=== PATIENT | female | born 1970 | race African-American/Black ===

== ENCOUNTER 2020-07-04 12:07 | Emergency (ER) | payer OTHER, MEDICAID ==
[2020-07-04] MEDS ORDERED: Sodium Chloride 0.9% 10 ML Syringe FLUSH PRN (12:26)
[2020-07-04 12:51] LABS: CHLORIDE,CL 103 mmol/L (98-107); SODIUM,NA 137 mmol/L (136-145)
[2020-07-04] MEDS ORDERED: Ketorolac 30 MG/ML SDV IVPUSH ONE (13:12)
--- NOTE | 2020-07-04 13:18 | EDM.PDOC ---
ED HPI GENERAL MEDICAL PROBLEM - General Chief Complaint: General Stated Complaint: left groin to back pain Time Seen by Provider: 07/04/20 12:35 Source of Information: Reports: Patient History Limitations: Reports: No Limitations - History of Present Illness INITIAL COMMENTS - FREE TEXT/NARRATIVE: Patient comes to ER with complaint of left sided pain in anterior thigh/low back . Started Monday, 3 days ago, gradually worsening. Notes mild swelling left anterior upper thigh area. 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 Was not placed on antibiotics per self report. She had been having left lower abdominal discomfort prior to the surgery and it was thought that she might have ovarian cysts involved. No cysts found per patient but ovaries/fallopian tubes were "up in intestines". Noted swelling in same upper anterior/lateral thigh area early May but did not have pain like today. Says that she was seen in [place] [facility] for this and nothing of note was found/told to follow up with primary provider. It was mentioned that they might order an MRI but this was not done due to patient moving to [place]. Hard to ambulate. Pain radiates up to left lower back when standing. Denies any specific new injuries. No fevers/chills/symptoms of infection. Eating/drinking well. No issues with urination/bowel movements. No swelling of lower legs noted. No neuro changes/weakness/numbness. HEENT/Resp/CV/chest ROS negative. Did not complain of abdominal pain. left groin/hip that wraps around to back Pain Score (Numeric/FACES): 10 - Related Data Allergies Allergy/AdvReac Type Severity Reaction Status Date / Time aspirin Allergy Chest Pain Verified 07/04/20 12:09 Home Meds: Home Meds Ibuprofen 800 mg PO TID 07/04/20 [History] Past Medical History [employer] History: Reports: Other (See Below) (Hx of removal of "infected" left ovary Apr 2020) Social & Family History - Tobacco Use Tobacco Use Status *Q: Never Tobacco User Second Hand Smoke Exposure: No - Caffeine Use Caffeine Use: Reports: None - Alcohol Use Alcohol Use History: Yes Alcohol Use Frequency: Rarely - Recreational Drug Use Recreational Drug Use: No ED ROS GENERAL - Review of Systems Review Of Systems: Comprehensive ROS is negative, except as noted in HPI. ED EXAM, GENERAL - Physical Exam Exam: See Below Exam Limited By: No Limitations General Appearance: Alert, WD/WN, No Apparent Distress Eye Exam: Bilateral Eye: EOMI, PERRL Ears: Hearing Grossly Normal Nose: No: Nasal Deformity, Nasal Swelling, Nasal Drainage Throat/Mouth: Normal Lips, Normal Voice, No Airway Compromise Head: Atraumatic, Normocephalic Neck: Supple Respiratory/Chest: No Respiratory Distress, Lungs Clear, Normal Breath Sounds, No Accessory Muscle Use, Chest Non-Tender Cardiovascular: Regular Rate, Rhythm, No Murmur GI/Abdominal: Normal Bowel Sounds, Soft, No Distention, Other (mild discomfort left lower quadrant with deep palpation) (Female) Exam: Deferred Rectal (Female) Exam: Deferred Back Exam: Other (left sided tenderness with palpation/percussion lower 1/2 back). No: Vertebral Tenderness Extremities: Normal Range of Motion, No Pedal Edema, Normal Capillary Refill, Other (Faint appearance of mild swelling left upper anterior/lateral thigh. No specific tenderness elicited with palpation. Unable to exacerbate pain complaint with palpation of groin area. Pain in left low back elicited with straight leg raise once leg past 50 degrees. No appearance of edema involving lower left leg. No redness or increased warmth noted in affected area. ). No: Increased Warmth Neurological: Alert, Oriented, Abnormal Gait (favors left leg with ambulation), Other (equal strength bilaterally) Psychiatric: Normal Affect, Normal Mood Skin Exam: Warm, Dry, Intact, Normal Color Course - Vital Signs Last Recorded V/S: Last Vital Signs Temp 35.9 C L 07/04/20 12:12 Pulse 61 07/04/20 12:12 Resp 16 07/04/20 12:12 BP 140/80 07/04/20 12:12 Pulse Ox 100 07/04/20 12:12 - Orders/Labs/Meds Orders: Active Orders 24 hr Category Date Time Status Abdomen Pelvis w Cont [CT] Stat Exams 07/04/20 13:09 Taken UA W/MICROSCOPIC [URIN] Stat Lab 07/04/20 12:25 Ordered Sodium Chloride 0.9% [Saline Flush] Med 07/04/20 12:26 Active 10 ml FLUSH ASDIRECTED PRN Saline Lock Insert [OM.PC] Routine Oth 07/04/20 12:26 Ordered Medication Orders Sodium Chloride (Saline Flush) 10 ml FLUSH ASDIRECTED PRN PRN Reason: Keep Vein Open Last Admin: 07/04/20 13:18 Dose: 10 ml Documented by: FABIO Labs: Laboratory Tests 07/04/20 07/04/20 07/04/20 Range/Units 12:30 12:30 12:30 WBC 6.1 (4.0-10.2) K/uL RBC 4.85 (3.77-5.09) M/uL Hgb 12.8 (11.7-15.5) g/dL Hct 39.2 (34.0-46.0) % MCV 80.8 L (84.0-98.0) fL MCH 26.4 L (28.2-33.3) pg MCHC 32.7 (31.7-36.0) g/dL RDW 13.6 (11.2-14.1) % Plt Count 209 (150-350) K/uL Neut % (Auto) 82.7 H (45.0-80.0) % Lymph % (Auto) 12.3 (10.0-50.0) % Jun[place] % (Auto) 4.8 (2.0-14.0) % Eos % (Auto) 0.2 (0.0-5.0) % Baso % (Auto) 0.0 (0.0-2.0) % Neut # (Auto) 5.05 (1.40-7.00) K/uL Lymph # (Auto) 0.75 (0.50-3.50) K/uL Juncos # (Auto) 0.29 (0.00-1.00) K/uL Eos # (Auto) 0.01 (0.00-0.50) K/uL Baso # (Auto) 0.00 (0.00-0.20) K/uL D-Dimer, Quantitative 632 H (0-400) ng/mL Sodium 137 (136-145) mmol/L Potassium 3.7 (3.5-5.1) mmol/L Chloride 103 (98-107) mmol/L Carbon Dioxide 27.1 (21.0-32.0) mmol/L BUN 6 L (7-18) mg/dL Creatinine 0.59 (0.51-1.17) mg/dL Est Cr Clr Drug Dosing 96.46 mL/min Estimated GFR (MDRD) > 60 mL/min Glucose 118 H (74-106) mg/dL Lactic Acid (0.4-2.0) mmol/L Calcium 9.8 (8.5-10.1) mg/dL Magnesium 2.0 (1.8-2.4) mg/dL Total Bilirubin 0.4 (0.2-1.0) mg/dL AST 12 L (15-37) U/L ALT 19 (12-78) U/L Alkaline Phosphatase 73 (46-116) IU/L Total Protein 7.7 (6.4-8.2) g/dL Albumin 3.7 (3.4-5.0) g/dL HCG, Qual (NEGATIVE) 07/04/20 07/04/20 Range/Units 12:30 12:30 WBC (4.0-10.2) K/uL RBC (3.77-5.09) M/uL Hgb (11.7-15.5) g/dL Hct (34.0-46.0) % MCV (84.0-98.0) fL MCH (28.2-33.3) pg MCHC (31.7-36.0) g/dL RDW (11.2-14.1) % Plt Count (150-350) K/uL Neut % (Auto) (45.0-80.0) % Lymph % (Auto) (10.0-50.0) % Jun[place] % (Auto) (2.0-14.0) % Eos % (Auto) (0.0-5.0) % Baso % (Auto) (0.0-2.0) % Neut # (Auto) (1.40-7.00) K/uL Lymph # (Auto) (0.50-3.50) K/uL Juncos # (Auto) (0.00-1.00) K/uL Eos # (Auto) (0.00-0.50) K/uL Baso # (Auto) (0.00-0.20) K/uL D-Dimer, Quantitative (0-400) ng/mL Sodium (136-145) mmol/L Potassium (3.5-5.1) mmol/L Chloride (98-107) mmol/L Carbon Dioxide (21.0-32.0) mmol/L BUN (7-18) mg/dL Creatinine (0.51-1.17) mg/dL Est Cr Clr Drug Dosing mL/min Estimated GFR (MDRD) mL/min Glucose (74-106) mg/dL Lactic Acid 1.1 (0.4-2.0) mmol/L Calcium (8.5-10.1) mg/dL Magnesium (1.8-2.4) mg/dL Total Bilirubin (0.2-1.0) mg/dL AST (15-37) U/L ALT (12-78) U/L Alkaline Phosphatase (46-116) IU/L Total Protein (6.4-8.2) g/dL Albumin (3.4-5.0) g/dL HCG, Qual Negative (NEGATIVE) Meds: Medications Generic Name Dose Route Start Last Admin Trade Name Freq PRN Reason Stop Dose Admin Sodium Chloride 10 ml 07/04/20 12:26 07/04/20 13:18 Saline Flush FLUSH 10 ml ASDIRECTED PRN Administration Keep Vein Open Discontinued Medications Generic Name Dose Route Start Last Admin Trade Name Freq PRN Reason Stop Dose Admin Iopamidol 100 ml 07/04/20 13:25 07/04/20 13:55 Isovue-300 (61%) IVPUSH 07/04/20 13:26 100 ml ONETIME ONE Administration Ketorolac Tromethamine 30 mg 07/04/20 13:12 07/04/20 13:17 Toradol IVPUSH 07/04/20 13:13 30 mg ONETIME ONE Administration - Re-Assessments/Exams Free Text/Narrative Re-Assessment/Exam: 07/04/20 13:32 Baseline labs performed. WBC normal. DDimer elevated. Differential included abscess/changes related to recent left ovarian surgery/abdominal concerns. Also potential of thromboembolism given groin discomfort/swelling. However it is noted that the observed minor swelling of the left upper thigh is isolated and there is no circumferential change in left lower leg which would be expected with DVT. Cannot rule out disc disease/radiated pain from spinal etiology. Discussed differential with [facility]. They recommended abd/pelvic CT to rule out intra-abdominal pathology/abscess. They also recommended US study of leg to rule out DVT/focal infection. That cannot be performed here today as it is the weekend. Patient at this time is not wanting to travel to [facility] in [place] for immediate US study today if abdominal CT is unremarkable. She prefers to wait until Monday when US is available here. Risk of waiting discussed with patient including PE from DVT if clot actually is found to be present. At this time she is willing to take that risk. If both of the above ultimately end up to be negative for focal findings would anticipate the need for patient to follow up with a primary provider locally and be scheduled for MRI study to assess for nerve impingement/disc pathology. CT of abdomen/pelvis ordered. IV Toradol administered. Free Text/Narrative Re-Assessment/Exam: 07/04/20 15:[address] of abdomen and pelvis as negative. Patient is now agreeable with having US of upper left leg performed today. Call placed to [facility] in [place]. Patient accepted for transfer to their ER by . US can be performed at their facility today. Further evaluation and treatment per [facility] after they have had a change to perform US study and evaluate patient. Departure - Departure Time of Disposition: 15:34 Disposition: DC/Tfer to Acute Hospital 02 Condition: Good Clinical Impression: Pain of back and left lower extremity, Localized swelling of lower extremity, Elevated d-dimer - Discharge Information *PRESCRIPTION DRUG MONITORING PROGRAM REVIEWED*: Not Applicable *COPY OF PRESCRIPTION DRUG MONITORING REPORT IN PATIENT ALYSSA: Not Applicable Forms: ED Department Discharge Additional Instructions: Drive directly to [facility] in [place]. They are expecting you. They will be able to perform the US study. You may need to be set up for additional imaging/follow up if ultrasound study is found to be normal. Follow up as recommended by [facility] once they have had a chance to evaluate you. Sepsis Event Note (ED) - Evaluation Sepsis Screening Result: No Definite Risk - Focused Exam Vital Signs: Vital Signs Temp Pulse Resp BP Pulse Ox 07/04/20 12:12 35.9 C L 61 16 140/80 100 - My Orders Last 24 Hours: My Active Orders 07/04/20 12:25 UA W/MICROSCOPIC [URIN] Stat 07/04/20 12:26 Sodium Chloride 0.9% [Saline Flush] 10 ml FLUSH ASDIRECTED PRN Saline Lock Insert [OM.PC] Routine 07/04/20 13:09 Abdomen Pelvis w Cont [CT] Stat - Assessment/Plan Last 24 Hours: My Active Orders 07/04/20 12:25 UA W/MICROSCOPIC [URIN] Stat 07/04/20 12:26 Sodium Chloride 0.9% [Saline Flush] 10 ml FLUSH ASDIRECTED PRN Saline Lock Insert [OM.PC] Routine 07/04/20 13:09 Abdomen Pelvis w Cont [CT] Stat
[2020-07-04] MEDS ORDERED: Iopamidol 612 MG/ML 100 ML Bottle IVPUSH ONE (13:25)
[2020-07-04] MEDS ORDERED: traMADol 50 MG Tab PO ONE (15:38)
== END 2020-07-04 16:07 ==
LOC: LL.ED 12:07
DX: M54.5 Low back pain (principal); M79.652 Pain in left thigh; M79.89 Other specified soft tissue disorders; R79.1 Abnormal coagulation profile; Z88.8 Allergy status to other drugs, medicaments and biological substances; Z90.721 Acquired absence of ovaries, unilateral
CPT/HCPCS: 36415; 74177; 80053; 83605; 83735; 84703; 85025; 85379; 96374; 99284; A9270; J1885; Q9967; 99283

== ENCOUNTER 2022-02-24 06:59 | Emergency (ER) | payer OTHER, MEDICAID ==
[2022-02-24] MEDS: Acetaminophen 325 MG Tab PO ONE (07:36)
[2022-02-24] MEDS: Ondansetron 4 MG Tab.DIS PO ONE (07:37)
[2022-02-24 08:01] LABS: CORONAVIRUS COVID-19 NAA NEGATIVE (NEGATIVE); RESPIRATORY SYNCYTIAL VIR NAA NEGATIVE (NEGATIVE)
== END 2022-02-24 09:30 | disposition home or self-care (01) ==
LOC: LL.ED 06:59
DX: B34.9 Viral infection, unspecified (principal); Z88.8 Allergy status to other drugs, medicaments and biological substances; Z20.822 Contact with and (suspected) exposure to COVID-19
CPT/HCPCS: 0241U; 99283; A9270